=== PATIENT | female | born 1945 | race Caucasian/White ===

== ENCOUNTER → 2016-08-18 | Outpatient (CLI) | payer MEDICARE, OTHER ==
[~2016-08-18] MED LIST: GOOD SENSE ASPI81 M1 PO; LEVOFLOXACIN500 MG PO; LEVOTHYROXIN0.075 MG PO; LISINOPRIL40 MG PO; ROBITUSSIN A-C S1 M1 PO; SYNTHROID0.075 MG PO
== END ==
LOC: LAB 09:19
DX: I10 Essential (primary) hypertension (principal); E03.4 Atrophy of thyroid (acquired)

== ENCOUNTER → 2016-11-16 | Outpatient (CLI) | payer MEDICARE, OTHER | LOC: LAB 07:45 | DX: C50.111 Malignant neoplasm of central portion of right female breast (principal) ==

== ENCOUNTER → 2017-05-17 | Outpatient (CLI) | payer MEDICARE, OTHER ==
[2013-06-12 09:00] VITALS: BP 145/71
== END ==
LOC: LAB 07:42
DX: C85.90 Non-Hodgkin lymphoma, unspecified, unspecified site (principal)

== ENCOUNTER → 2017-07-26 | Outpatient (CLI) | payer MEDICARE, OTHER ==
[2013-06-12 09:00] VITALS: BP 145/71
== END ==
LOC: LAB 11:05
DX: E03.9 Hypothyroidism, unspecified (principal); Z88.5 Allergy status to narcotic agent; Z88.0 Allergy status to penicillin; Z88.8 Allergy status to other drugs, medicaments and biological substances

== ENCOUNTER → 2017-09-01 | Outpatient (CLI) | payer MEDICARE, OTHER ==
[2013-06-12 09:00] VITALS: BP 145/71
== END ==
LOC: LAB 09:39
DX: N30.01 Acute cystitis with hematuria (principal); Z88.1 Allergy status to other antibiotic agents; Z88.5 Allergy status to narcotic agent; Z88.0 Allergy status to penicillin; Z88.8 Allergy status to other drugs, medicaments and biological substances

== ENCOUNTER → 2017-09-13 | Outpatient (CLI) | payer MEDICARE, OTHER ==
[2013-06-12 09:00] VITALS: BP 145/71
[2017-09-13 09:14] LABS: URINE APPEARANCE CLOUDY; URINE BILIRUBIN NEGATIVE (NEGATIVE); URINE COLOR YELLOW; URINE GLUCOSE NEGATIVE (NEGATIVE); URINE KETONE NEGATIVE (NEGATIVE); URINE PROTEIN(semi-quant) TRACE mg/dL (NEGATIVE)
[2017-09-13 09:15] LABS: URINE BLOOD NEGATIVE (NEGATIVE); URINE LEUKOCYTE ESTERASE 1+ (NEGATIVE); URINE MUCUS PRESENT (NOT PRESENT); URINE NITRATE NEGATIVE (NEGATIVE); URINE UROBILINOGEN NORMAL (NORMAL); URINE WBC 16-30 /hpf (0-3)
== END ==
LOC: LAB 08:21
PROVIDERS: Nurse Practitioner Family
DX: N39.0 Urinary tract infection, site not specified (principal); Z88.1 Allergy status to other antibiotic agents; Z88.5 Allergy status to narcotic agent; Z88.0 Allergy status to penicillin; Z88.8 Allergy status to other drugs, medicaments and biological substances

== ENCOUNTER → 2017-11-15 | Outpatient (CLI) | payer MEDICARE, OTHER ==
[2013-06-12 09:00] VITALS: BP 145/71
[2017-11-15 08:21] LABS: EOS # 0.2 (0.04-0.40); EOS % 2.6 % (1.0-5.0); HEMATOCRIT 44.2 % (37.0-47.0); HEMOGLOBIN 14.5 g/dL (12.5-16.0); LYMPH# 1.8 (1.50-4.00); MEAN CELL VOLUME 93 fl (78-100); MEAN CORPUSCULAR HEMOGLOBIN 30 pg (27-31); MEAN CORPUSCULAR HGB CONC 33 g/dL (33-37); MEAN PLATELET VOLUME 10.3 fl (7.4-10.4); MONO # 0.4 (0.20-0.80); NEU # 4.3 (1.40-6.50); PLATELET COUNT 207 K/mm3 (130-400); RED BLOOD COUNT 4.78 M/mm3 (4.10-5.30); RED CELL DISTRIBUTION WIDTH 14.9 % (11.5-14.5); WHITE BLOOD COUNT 6.7 K/mm3 (4.8-10.8)
[2017-11-15 08:37] LABS: BUN/CREATININE RATIO 13.6 (6.0-26.0); CALCIUM 9.3 mg/dL (8.4-10.2); POTASSIUM 3.7 mmol/L (3.6-5.0); TOTAL BILIRUBIN 0.7 mg/dL (0.2-1.3); TOTAL PROTEIN 7.3 g/dL (6.3-8.2)
== END ==
LOC: LAB 08:02
PROVIDERS: Internal Medicine Medical Oncology
DX: C83.38 Diffuse large B-cell lymphoma, lymph nodes of multiple sites (principal)

== ENCOUNTER → 2018-01-13 | Outpatient (CLI) | payer MEDICARE, OTHER ==
[2013-06-12 09:00] VITALS: BP 145/71
== END ==
LOC: LAB 07:54
DX: Z00.00 Encounter for general adult medical examination without abnormal findings (principal); Z13.220 Encounter for screening for lipoid disorders

== ENCOUNTER → 2018-02-08 | Outpatient (CLI) | payer MEDICARE, OTHER ==
[2013-06-12 09:00] VITALS: BP 145/71
== END ==
LOC: MAMMO 08:27
DX: Z12.31 Encounter for screening mammogram for malignant neoplasm of breast (principal)

== ENCOUNTER → 2018-05-16 | Outpatient (CLI) | payer MEDICARE, OTHER ==
[2013-06-12 09:00] VITALS: BP 145/71
[2018-05-16 08:14] LABS: ALBUMIN 4.1 g/dL (3.5-5.0); POTASSIUM 3.5 mmol/L (3.6-5.0); TOTAL BILIRUBIN 1.1 mg/dL (0.2-1.3); TOTAL PROTEIN 6.8 g/dL (6.3-8.2)
[2018-05-16 08:16] LABS: EOS # 0.1 (0.04-0.40); EOS % 2.7 % (1.0-5.0); HEMATOCRIT 43.8 % (37.0-47.0); HEMOGLOBIN 14.8 g/dL (12.5-16.0); LYMPH# 1.6 (1.50-4.00); MEAN CELL VOLUME 91 fl (78-100); MEAN CORPUSCULAR HEMOGLOBIN 31 pg (27-31); MEAN CORPUSCULAR HGB CONC 34 g/dL (33-37); MEAN PLATELET VOLUME 10.5 fl (7.4-10.4); MONO # 0.4 (0.20-0.80); NEU # 3.1 (1.40-6.50); PLATELET COUNT 188 K/mm3 (130-400); RED BLOOD COUNT 4.79 M/mm3 (4.10-5.30); RED CELL DISTRIBUTION WIDTH 15.1 % (11.5-14.5); WHITE BLOOD COUNT 5.2 K/mm3 (4.8-10.8)
== END ==
LOC: LAB 07:43
PROVIDERS: Internal Medicine Medical Oncology
DX: C85.90 Non-Hodgkin lymphoma, unspecified, unspecified site (principal)

== ENCOUNTER → 2018-10-25 | Outpatient (CLI) | payer MEDICARE, OTHER ==
[2013-06-12 09:00] VITALS: BP 145/71
== END ==
LOC: LAB 10:11
DX: R39.9 Unspecified symptoms and signs involving the genitourinary system (principal)

== ENCOUNTER → 2018-11-14 | Outpatient (CLI) | payer MEDICARE, OTHER ==
[2013-06-12 09:00] VITALS: BP 145/71
[2018-11-14 07:42] LABS: EOS # 0.1 (0.04-0.40); EOS % 3.1 % (1.0-5.0); HEMATOCRIT 43.7 % (37.0-47.0); LYMPH# 1.3 (1.50-4.00); MEAN CELL VOLUME 92 fl (78-100); MEAN CORPUSCULAR HEMOGLOBIN 29 pg (27-31); MEAN CORPUSCULAR HGB CONC 32 g/dL (33-37); MEAN PLATELET VOLUME 10.5 fl (7.4-10.4); MONO # 0.4 (0.20-0.80); NEU # 2.8 (1.40-6.50); PLATELET COUNT 192 K/mm3 (130-400); RED BLOOD COUNT 4.77 M/mm3 (4.10-5.30); RED CELL DISTRIBUTION WIDTH 14.9 % (11.5-14.5); WHITE BLOOD COUNT 4.6 K/mm3 (4.8-10.8)
[2018-11-14 07:57] LABS: ALBUMIN 3.9 g/dL (3.5-5.0); CALCIUM 9.2 mg/dL (8.4-10.2); POTASSIUM 3.1 mmol/L (3.6-5.0); TOTAL BILIRUBIN 0.9 mg/dL (0.2-1.3); TOTAL PROTEIN 6.8 g/dL (6.3-8.2)
== END ==
LOC: LAB 07:25
PROVIDERS: Internal Medicine Medical Oncology
DX: C83.38 Diffuse large B-cell lymphoma, lymph nodes of multiple sites (principal)

== ENCOUNTER → 2019-02-09 | Outpatient (CLI) | payer MEDICARE, OTHER ==
[2013-06-12 09:00] VITALS: BP 145/71
[2019-02-09 09:29] LABS: POTASSIUM 3.6 mmol/L (3.5-5.1)
[2019-02-09 09:31] LABS: CALCIUM 9.8 mg/dL (8.3-10.5)
== END ==
LOC: LAB 09:04
PROVIDERS: Physician Assistant
DX: Z00.00 Encounter for general adult medical examination without abnormal findings (principal); Z12.31 Encounter for screening mammogram for malignant neoplasm of breast; I10 Essential (primary) hypertension; E03.9 Hypothyroidism, unspecified; E78.2 Mixed hyperlipidemia; J30.1 Allergic rhinitis due to pollen; Z85.72 Personal history of non-Hodgkin lymphomas

== ENCOUNTER → 2019-11-20 | Outpatient (CLI) | payer MEDICARE ==
[2013-06-12 09:00] VITALS: BP 145/71
[2019-11-20 08:52] LABS: EOS # 0.1 (0.04-0.40); EOS % 2.1 % (1.0-5.0); HEMATOCRIT 44.2 % (37.0-47.0); HEMOGLOBIN 14.3 g/dL (12.5-16.0); LYMPH# 1.5 (1.50-4.00); MEAN CELL VOLUME 91 fl (78-100); MEAN CORPUSCULAR HEMOGLOBIN 29 pg (27-31); MEAN CORPUSCULAR HGB CONC 32 g/dL (33-37); MEAN PLATELET VOLUME 10.7 fl (7.4-10.4); MONO # 0.5 (0.20-0.80); NEU # 3.3 (1.40-6.50); PLATELET COUNT 184 K/mm3 (130-400); RED BLOOD COUNT 4.87 M/mm3 (4.10-5.30); RED CELL DISTRIBUTION WIDTH 14.9 % (11.5-14.5); WHITE BLOOD COUNT 5.3 K/mm3 (4.8-10.8)
[2019-11-20 08:56] LABS: ALBUMIN 3.9 g/dL (3.4-4.8); POTASSIUM 3.7 mmol/L (3.5-5.1)
[2019-11-20 08:57] LABS: CALCIUM 9.5 mg/dL (8.3-10.5)
[2019-11-20 08:58] LABS: TOTAL PROTEIN 6.6 g/dL (6.2-8.1)
[2019-11-20 09:00] LABS: TOTAL BILIRUBIN 0.8 mg/dL (0.2-1.2)
[2019-11-20 10:00] LABS: ERYTHROCYTE SEDIMENTATION RATE 13 mm/hr (0-30)
== END ==
LOC: LAB 07:33
PROVIDERS: Internal Medicine Medical Oncology
DX: C83.38 Diffuse large B-cell lymphoma, lymph nodes of multiple sites (principal)

== ENCOUNTER → 2020-01-30 | Outpatient (CLI) | payer MEDICARE ==
[2013-06-12 09:00] VITALS: BP 145/71
== END ==
LOC: MAMMO 09:15
DX: Z12.31 Encounter for screening mammogram for malignant neoplasm of breast (principal)

== ENCOUNTER → 2020-02-06 | Outpatient (CLI) | payer MEDICARE ==
[2013-06-12 09:00] VITALS: BP 145/71
== END ==
LOC: RAD 14:47
DX: Z00.00 Encounter for general adult medical examination without abnormal findings (principal); M19.012 Primary osteoarthritis, left shoulder; I10 Essential (primary) hypertension; E03.9 Hypothyroidism, unspecified; J30.1 Allergic rhinitis due to pollen; E78.2 Mixed hyperlipidemia; M54.9 Dorsalgia, unspecified; L20.9 Atopic dermatitis, unspecified; K90.9 Intestinal malabsorption, unspecified; Z85.72 Personal history of non-Hodgkin lymphomas

== ENCOUNTER → 2020-02-07 | Outpatient (CLI) | payer MEDICARE ==
[2013-06-12 09:00] VITALS: BP 145/71
== END ==
LOC: LAB 07:33
DX: Z00.00 Encounter for general adult medical examination without abnormal findings (principal); I10 Essential (primary) hypertension; K90.9 Intestinal malabsorption, unspecified; E03.9 Hypothyroidism, unspecified; L20.9 Atopic dermatitis, unspecified; J30.1 Allergic rhinitis due to pollen; E78.2 Mixed hyperlipidemia; M25.512 Pain in left shoulder; M54.5 Low back pain; Z85.72 Personal history of non-Hodgkin lymphomas

== ENCOUNTER → 2020-02-07 | Outpatient (CLI) | payer MEDICARE ==
[2013-06-12 09:00] VITALS: BP 145/71
== END ==
LOC: RAD 11:18 → MAMMO 11:30
DX: M25.512 Pain in left shoulder (principal); Z00.00 Encounter for general adult medical examination without abnormal findings; Z13.820 Encounter for screening for osteoporosis; M85.851 Other specified disorders of bone density and structure, right thigh; E03.9 Hypothyroidism, unspecified; J30.1 Allergic rhinitis due to pollen; I10 Essential (primary) hypertension; E78.2 Mixed hyperlipidemia; M54.9 Dorsalgia, unspecified; L20.9 Atopic dermatitis, unspecified; K90.9 Intestinal malabsorption, unspecified; Z85.72 Personal history of non-Hodgkin lymphomas

== ENCOUNTER 2020-03-01 13:45 | Outpatient (RCR) | payer MEDICARE ==
[2013-06-12 09:00] VITALS: BP 145/71
== END 2020-05-12 | disposition still patient (30) ==
LOC: PT
DX: Z00.00 Encounter for general adult medical examination without abnormal findings (principal); E03.9 Hypothyroidism, unspecified; J30.1 Allergic rhinitis due to pollen; I10 Essential (primary) hypertension; E78.2 Mixed hyperlipidemia; M25.512 Pain in left shoulder; L20.9 Atopic dermatitis, unspecified; K90.9 Intestinal malabsorption, unspecified; M54.9 Dorsalgia, unspecified; Z85.72 Personal history of non-Hodgkin lymphomas

== ENCOUNTER → 2020-11-22 | Outpatient (CLI) | payer MEDICARE ==
[2013-06-12 09:00] VITALS: BP 145/71
[2020-11-22 08:47] LABS: EOS # 0.1 (0.04-0.40); EOS % 2.3 % (1.0-5.0); HEMATOCRIT 45.4 % (37.0-47.0); HEMOGLOBIN 14.7 g/dL (12.5-16.0); LYMPH# 1.3 (1.50-4.00); MEAN CELL VOLUME 93 fl (78-100); MEAN CORPUSCULAR HEMOGLOBIN 30 pg (27-31); MEAN CORPUSCULAR HGB CONC 32 g/dL (33-37); MEAN PLATELET VOLUME 10.2 fl (7.4-10.4); MONO # 0.3 (0.20-0.80); NEU # 3.1 (1.40-6.50); PLATELET COUNT 186 K/mm3 (130-400); RED BLOOD COUNT 4.87 M/mm3 (4.10-5.30); RED CELL DISTRIBUTION WIDTH 14.9 % (11.5-14.5); WHITE BLOOD COUNT 4.9 K/mm3 (4.8-10.8)
[2020-11-22 08:50] LABS: ALBUMIN 4.1 g/dL (3.4-4.8)
[2020-11-22 08:51] LABS: POTASSIUM 3.5 mmol/L (3.5-5.1)
[2020-11-22 08:52] LABS: CALCIUM 9.5 mg/dL (8.3-10.5)
[2020-11-22 08:53] LABS: TOTAL PROTEIN 6.8 g/dL (6.2-8.1)
[2020-11-22 08:55] LABS: TOTAL BILIRUBIN 0.9 mg/dL (0.2-1.2)
[2020-11-22 09:49] LABS: ERYTHROCYTE SEDIMENTATION RATE 6 mm/hr (0-30)
== END ==
LOC: LAB 08:25
PROVIDERS: Internal Medicine Medical Oncology
DX: C83.38 Diffuse large B-cell lymphoma, lymph nodes of multiple sites (principal)

== ENCOUNTER → 2021-02-07 | Outpatient (CLI) | payer MEDICARE ==
[2021-02-07 10:45] LABS: PH-URINE 7.5 (5.0 - 8.0); URINE APPEARANCE CLOUDY; URINE BILIRUBIN NEGATIVE (NEGATIVE); URINE BLOOD 50 ery/uL (NEGATIVE); URINE COLOR YELLOW; URINE GLUCOSE NEGATIVE (NEGATIVE); URINE KETONE NEGATIVE (NEGATIVE); URINE LEUKOCYTE ESTERASE 2+ (NEGATIVE); URINE NITRATE POSITIVE (NEGATIVE); URINE PROTEIN(semi-quant) NEGATIVE (NEGATIVE); URINE UROBILINOGEN NORMAL (NORMAL); URINE WBC 31-50 /hpf (0-3)
[2021-02-07 10:46] LABS: URINE MUCUS PRESENT (NOT PRESENT)
== END ==
LOC: LAB 09:19
PROVIDERS: Physician Assistant
DX: E78.2 Mixed hyperlipidemia (principal); E03.4 Atrophy of thyroid (acquired); M85.80 Other specified disorders of bone density and structure, unspecified site; R10.9 Unspecified abdominal pain

== ENCOUNTER → 2021-02-12 | Outpatient (CLI) | payer MEDICARE | LOC: MAMMO 09:05 | DX: Z12.31 Encounter for screening mammogram for malignant neoplasm of breast (principal) ==

== ENCOUNTER → 2021-11-21 | Outpatient (CLI) | payer MEDICARE ==
[2021-11-21 11:58] LABS: BASO # 0.02 K/mm3 (0.02-0.10); EOS # 0.06 K/mm3 (0.04-0.40); EOS % 1.1 % (1.0-5.0); HEMATOCRIT 45.2 % (37.0-47.0); LYMPH# 1.49 K/mm3 (1.50-4.00); MEAN CELL VOLUME 91 fl (78-100); MEAN CORPUSCULAR HEMOGLOBIN 30 pg (27-31); MEAN CORPUSCULAR HGB CONC 33 g/dL (33-37); MEAN PLATELET VOLUME 10.3 fl (7.4-10.4); MONO # 0.31 K/mm3 (0.20-0.80); NEU # 3.58 K/mm3 (1.40-6.50); PLATELET COUNT 209 K/mm3 (130-400); RED BLOOD COUNT 4.96 M/mm3 (4.10-5.30); RED CELL DISTRIBUTION WIDTH 13.3 % (11.5-14.5); WHITE BLOOD COUNT 5.5 K/mm3 (4.8-10.8)
[2021-11-21 12:56] LABS: ALBUMIN 4.2 g/dL (3.4-4.8); POTASSIUM 3.3 mmol/L (3.5-5.1)
[2021-11-21 12:58] LABS: CALCIUM 10.4 mg/dL (8.3-10.5)
[2021-11-21 12:59] LABS: TOTAL PROTEIN 6.9 g/dL (6.2-8.1)
[2021-11-21 13:01] LABS: TOTAL BILIRUBIN 1.1 mg/dL (0.2-1.2)
[2021-11-21 13:12] LABS: ERYTHROCYTE SEDIMENTATION RATE 27 mm/hr (0-30)
== END ==
LOC: LAB 11:09
PROVIDERS: Internal Medicine Medical Oncology
DX: Z01.89 Encounter for other specified special examinations (principal)

== ENCOUNTER → 2021-12-09 | Outpatient (CLI) | payer MEDICARE | LOC: RAD 16:06 → LAB 16:06 | DX: M19.011 Primary osteoarthritis, right shoulder (principal) ==

== ENCOUNTER → 2022-02-12 | Outpatient (CLI) | payer MEDICARE | LOC: MAMMO 09:43 | DX: Z12.31 Encounter for screening mammogram for malignant neoplasm of breast (principal) ==

== ENCOUNTER → 2022-02-12 | Outpatient (CLI) | payer MEDICARE | LOC: LAB 11:20 | DX: Z00.00 Encounter for general adult medical examination without abnormal findings (principal); J30.1 Allergic rhinitis due to pollen; E03.4 Atrophy of thyroid (acquired); E78.2 Mixed hyperlipidemia; I10 Essential (primary) hypertension; F43.21 Adjustment disorder with depressed mood; K90.9 Intestinal malabsorption, unspecified; Z85.72 Personal history of non-Hodgkin lymphomas ==

== ENCOUNTER → 2022-03-12 | Outpatient (CLI) | payer MEDICARE ==
[2022-03-12 13:49] LABS: ALBUMIN 3.9 g/dL (3.4-4.8)
[2022-03-12 13:50] LABS: POTASSIUM 3.6 mmol/L (3.5-5.1)
[2022-03-12 13:52] LABS: TOTAL PROTEIN 6.5 g/dL (6.2-8.1)
== END ==
LOC: LAB 13:19
PROVIDERS: Nurse Practitioner Family
DX: U07.1 COVID-19 (principal); R35.0 Frequency of micturition; I49.9 Cardiac arrhythmia, unspecified; I49.8 Other specified cardiac arrhythmias

== ENCOUNTER → 2022-11-20 | Outpatient (CLI) | payer MEDICARE ==
[2022-11-20 09:18] LABS: HEMATOCRIT 45.6 % (37.0-47.0); HEMOGLOBIN 14.8 g/dL (12.5-16.0); MEAN CELL VOLUME 94 fl (78-100); MEAN CORPUSCULAR HEMOGLOBIN 31 pg (27-31); MEAN CORPUSCULAR HGB CONC 33 g/dL (33-37); MEAN PLATELET VOLUME 10.1 fl (7.4-10.4); PLATELET COUNT 180 K/mm3 (130-400); RED BLOOD COUNT 4.83 M/mm3 (4.10-5.30); RED CELL DISTRIBUTION WIDTH 14.3 % (11.5-14.5)
[2022-11-20 09:22] LABS: ALBUMIN 4.2 g/dL (3.4-4.8); POTASSIUM 3.6 mmol/L (3.5-5.1)
[2022-11-20 09:24] LABS: CALCIUM 9.8 mg/dL (8.3-10.5)
[2022-11-20 09:25] LABS: TOTAL PROTEIN 6.6 g/dL (6.2-8.1)
[2022-11-20 09:27] LABS: TOTAL BILIRUBIN 0.9 mg/dL (0.2-1.2)
[2022-11-20 10:58] LABS: ERYTHROCYTE SEDIMENTATION RATE 13 mm/hr (0-30)
[2022-11-20 11:46] LABS: LYMPHOCYTE 23 % (20-51); MONOCYTE 6 % (3-10); NEUTROPHILS 70 % (42-75)
== END ==
LOC: LAB 08:32
PROVIDERS: Internal Medicine Medical Oncology
DX: C83.38 Diffuse large B-cell lymphoma, lymph nodes of multiple sites (principal)

== ENCOUNTER → 2023-06-09 | Day surgery (SDC) | payer MEDICARE, OTHER | END | disposition home or self-care (01) | LOC: MSO 08:47 | DX: H25.811 Combined forms of age-related cataract, right eye (principal) | CPT/HCPCS: 00142; J0171; J2250; V2632 ==

== ENCOUNTER → 2023-11-23 | Outpatient (CLI) | payer MEDICARE, OTHER ==
[2023-11-23 08:10] LABS: BASO # 0.01 K/mm3 (0.02-0.10); EOS # 0.13 K/mm3 (0.04-0.40); HEMATOCRIT 46.3 % (37.0-47.0); HEMOGLOBIN 14.9 g/dL (12.5-16.0); MEAN CELL VOLUME 93 fl (78-100); MEAN CORPUSCULAR HEMOGLOBIN 30 pg (27-31); MEAN CORPUSCULAR HGB CONC 32 g/dL (33-37); MEAN PLATELET VOLUME 9.8 fl (7.4-10.4); MONO # 0.34 K/mm3 (0.20-0.80); NEU # 2.53 K/mm3 (1.40-6.50); PLATELET COUNT 197 K/mm3 (130-400); RED BLOOD COUNT 4.99 M/mm3 (4.10-5.30); RED CELL DISTRIBUTION WIDTH 14.3 % (11.5-14.5); WHITE BLOOD COUNT 4.3 K/mm3 (4.8-10.8)
[2023-11-23 08:17] LABS: ALBUMIN 4.3 g/dL (3.4-4.8)
[2023-11-23 08:19] LABS: CALCIUM 10.5 mg/dL (8.3-10.5)
[2023-11-23 08:20] LABS: TOTAL PROTEIN 6.6 g/dL (6.2-8.1)
[2023-11-23 08:22] LABS: TOTAL BILIRUBIN 1.1 mg/dL (0.2-1.2)
== END ==
LOC: LAB 07:55
PROVIDERS: Internal Medicine Medical Oncology
DX: C83.38 Diffuse large B-cell lymphoma, lymph nodes of multiple sites (principal)

== ENCOUNTER → 2023-12-15 | Outpatient (CLI) | payer MEDICARE, OTHER | LOC: LAB 10:42 | DX: N39.0 Urinary tract infection, site not specified (principal) ==

== ENCOUNTER → 2024-02-24 | Outpatient (CLI) | payer MEDICARE, OTHER | LOC: LAB 09:11 | DX: Z13.1 Encounter for screening for diabetes mellitus (principal); E03.4 Atrophy of thyroid (acquired); E78.2 Mixed hyperlipidemia ==

== ENCOUNTER → 2024-03-07 | Outpatient (CLI) | payer MEDICARE, OTHER | LOC: MAMMO 09:19 | DX: Z12.31 Encounter for screening mammogram for malignant neoplasm of breast (principal) ==

== ENCOUNTER → 2024-05-18 | Outpatient (CLI) | payer MEDICARE, OTHER | LOC: LAB 09:24 | DX: N39.0 Urinary tract infection, site not specified (principal) ==

== ENCOUNTER → 2024-09-26 | Outpatient (CLI) | payer MEDICARE, OTHER | LOC: LAB 10:36 → RAD 10:36 | DX: M47.816 Spondylosis without myelopathy or radiculopathy, lumbar region (principal); M41.86 Other forms of scoliosis, lumbar region; N39.0 Urinary tract infection, site not specified ==